=== PATIENT | male | born 1945 | race Caucasian/White ===

== ENCOUNTER 2021-09-17 09:19 | Emergency (ER) | payer MEDICARE ==
[2021-09-17 09:28] VITALS: BP 124/77; PULSE 84; RESP 18
[2021-09-17] MEDS ORDERED: LIDOCAINE 1% INJ 10MG/ML (5 ML VIAL-PF) SQ ONE (09:50)
[2021-09-17] MEDS ORDERED: DIPH,PERTUS(ACELL)TETVAC-LF 0.5 ML VIAL IM ONE (09:58)
--- NOTE | 2021-09-17 09:58 | ED ---
Upper Extremity HPI - General Chief Complaint: Extremity Injury, Upper Stated Complaint: Hand injury Time Seen by Provider: 09/17/21 09:34 Source: patient, RN notes reviewed Mode of arrival: wheelchair Limitations: no limitations - History of Present Illness Initial Comments: This a 76-year-old male presents emergency fracture, left hand laceration. Pat ient states that he fell cutting his hand on a rock. Patient states he believes his last tetanus around doesn't 16. Patient denies any head injury no other injuries from the fall he patient has mild bleeding full range of motion of the digit. - Related Data Allergies Allergy/AdvReac Type Severity Reaction Status Date / Time mercury (elemental) AdvReac Rash/Hives Verified 09/17/21 09:22 Review of Systems ROS Statement: Those systems with pertinent positive or pertinent negative responses have been documented in the HPI. ROS Other: All systems not noted in ROS Statement are negative. Past Medical History Past Medical History: Diabetes Mellitus, Hypertension, Thyroid Disorder Additional Past Medical History / Comment(s): Kidney transplant History of Any Multi-Drug Resistant Organisms: None Reported Past Surgical History: Orthopedic Surgery Additional Past Surgical History / Comment(s): Left kidney removed, thyroidectomy, left foot surgery Past Psychological History: No Psychological Hx Reported Smoking Status: Former smoker Past Alcohol Use History: None Reported Past Drug Use History: None Reported General Exam Limitations: no limitations General appearance: alert, in no apparent distress Head exam: Present: atraumatic, normocephalic, normal inspection Neck exam: Present: normal inspection, full ROM. Absent: tenderness, meningismus, lymphadenopathy Respiratory exam: Present: normal lung sounds bilaterally. Absent: respiratory distress, wheezes, rales, rhonchi, stridor Cardiovascular Exam: Present: regular rate, normal rhythm, normal heart sounds. Absent: systolic murmur, diastolic murmur, rubs, gallop, clicks Extremities exam: Present: other (Left hand there is noted laceration at the base of the fifth digit over the MCP region pulmonary aspect 3 cm) Course Vital Signs 09/17/21 09:22 Pulse Rate 84 Respiratory 18 Rate Blood Pressure 124/77 O2 Sat by Pulse 97 Oximetry Procedures - Laceration Laceration #1 Consent Obtained: verbal consent Indication: laceration Site: hand Size (cm): 3 Description: irregular Depth: simple, single layer Anesthetic Used: lidocaine 1%, without epi Anesthesia Technique: local infiltration Amount (mls): 5 Pre-repair: wound explored, irrigated extensively, deep structures intact Type of Sutures: nylon Size of Sutures: 4-0 Number of Sutures: 7 Technique: simple, interrupted Patient Tolerated Procedure: well, no complications Medical Decision Making - Medical Decision Making 76 show presented for left hand injury. Patient did have 3 cm laceration x-rays are negative tetanus updated sutures were placed a she'll discharged in stable condition return parameters discussed wound care. Discussed Disposition Clinical Impression: Fall, Laceration of left hand Disposition: HOME SELF-CARE Condition: Stable Instructions (If sedation given, give patient instructions): Laceration (ED), Care For Your Stitches (ED) Additional Instructions: Have sutures removed in 10 days.Please return to the Emergency Department if symptoms worsen or any other concerns. Is patient prescribed a controlled substance at d/c from ED?: No Referrals: Tutu Mtz DO [Primary Care Provider] - 1-2 days Time of Disposition: 11:01
[2021-09-17] MEDS ORDERED: BACITRACIN OINT 1 EACH PACKET TOPICAL ONE (10:48)
--- NOTE | 2021-09-17 11:59 | XR ---
Left hand HISTORY: Laceration 3 views the left hand There are vascular calcifications seen within the soft tissues. Bone mineralization is reduced. Joint spaces and alignment are maintained. There is no fracture or dislocation. No radiopaque foreign body . IMPRESSION: No acute abnormalities evident
== END 2021-09-17 11:07 | disposition home or self-care (01) ==
LOC: EC 09:19
DX: S69.92XA Unspecified injury of left wrist, hand and finger(s), initial encounter (principal); Z88.9 Allergy status to unspecified drugs, medicaments and biological substances; E11.9 Type 2 diabetes mellitus without complications; I10 Essential (primary) hypertension; Z87.891 Personal history of nicotine dependence; W19.XXXA Unspecified fall, initial encounter; W22.8XXA Striking against or struck by other objects, initial encounter
CPT/HCPCS: 73130; 90715; 99284; 90471; 12002; J2001